=== PATIENT | male | born 1990 | race Caucasian/White ===

== ENCOUNTER 2017-02-21 07:43 | Emergency (ER) | payer OTHER ==
[2017-02-21] MEDS ORDERED: Ibuprofen 800 MG TAB ONE (07:59)
[2017-02-21] MEDS ORDERED: Ciprofloxacin 500 MG TAB ONE (07:59)
[2017-02-21] MEDS ORDERED: predniSONE 20 MG TAB ONE (07:59)
== END 2017-02-21 08:04 | disposition home or self-care (01) ==
LOC: NAV ERS 07:43
DX: K02.9 Dental caries, unspecified (principal)
CPT/HCPCS: 99282; J7506